=== PATIENT | female | born 1945 | race Caucasian/White ===

== ENCOUNTER 2022-02-12 13:23 | Inpatient (IN) | payer MEDICARE, OTHER ==
[~2022-02-12] VITALS: Ht 152.4 cm; Wt 70.3 kg
[~2022-02-12 13:23] MED LIST: ALPR-392; CITA10TA9; DIVA-73; ESTR0.3T3; IBUP-777; LOSA100T3; SIMV40TA2
[2022-02-12 15:09] LABS: BASOPHILS % 0.4 % (0.0-2.0); CHLORIDE 105 mEq/L (98-107); EOSINOPHILS % 0.6 % (0.0-5.0); HEMATOCRIT. 37.5 % (36.0-48.0); HEMOGLOBIN. 12.2 g/dL (12.0-16.0); LYMPHOCYTES % 23.5 % (20.0-50.0); MEAN CORPUSCULAR HEMOGLOBIN 27.3 pg (28.0-32.0); MEAN CORPUSCULAR VOLUME 84.3 fL (81.0-99.0); MEAN PLATELET VOLUME 9.6 fl (7.4-10.4); MONOCYTES % 8.4 % (2.0-8.0); NEUTROPHILS % 67.1 % (40.0-76.0); PLATELET 214 x1000/uL (130-400); RED BLOOD CELL COUNT 4.45 mill/uL (4.2-5.4); RED CELL DISTRIBUTION WIDTH 16.2 % (11.6-14.6)
[2022-02-12 15:13] LABS: ETHANOL BLOOD < 10 mg/dL
[2022-02-12] MEDS ORDERED: LEVOFLOXACIN 750MG PREMIX 150 ML IV ONE (16:45)
[2022-02-12] MEDS ORDERED: ASPIRIN 81MG TABLET PO ONE (16:45)
[2022-02-12] MEDS ORDERED: ASPIRIN 81MG TABLET PO NR (18:30)
[2022-02-12 20:35] VITALS: BP 152/74
[2022-02-12] MEDS ORDERED: HYDRALAZINE 20MG/ML VIAL IV PRN (22:00)
[2022-02-12] MEDS ORDERED: ZOLPIDEM TARTRATE 5MG TABLET PO PRN (22:00)
[2022-02-12] MEDS ORDERED: DIPHENHYDRAMINE 50MG/ML VIAL IV PRN (22:00)
[2022-02-12] MEDS ORDERED: GUAIFENESIN 200MG/10ML SUGAR FREE UDC PO PRN (22:00)
[2022-02-12] MEDS ORDERED: ENOXAPARIN 40MG/0.4ML SYR SUBCUT SCH (22:00)
[2022-02-12] MEDS ORDERED: ONDANSETRON HCL 4MG/2ML INJ IV PRN (22:00)
[2022-02-12] MEDS ORDERED: CLONIDINE 0.1MG TABLET PO PRN (22:00)
[2022-02-12] MEDS ORDERED: ACETAMINOPHEN 325MG TABLET PO PRN ×2 (22:00)
[2022-02-12] MEDS ORDERED: ASPI-1406 PO (22:10)
[2022-02-12] MEDS ORDERED: ATOR40TA70 PO (22:10)
[2022-02-12] MEDS ORDERED: OXYB5TAB17 PO (22:10)
[2022-02-12] MEDS ORDERED: DIVA-73 PO (22:10)
[2022-02-12] MEDS ORDERED: LOSA50TA41 PO (22:10)
[2022-02-12] MEDS ORDERED: HYDR12.54 PO (22:10)
[2022-02-12] MEDS ORDERED: CITA10TA9 PO (22:10)
[2022-02-12] MEDS: SODIUM CHLORIDE 0.9% INJ 3ML FLUSH IVF SCH (22:56)
[2022-02-12] MEDS: ENOXAPARIN 60MG/0.6ML SYR SUBCUT SCH (22:56)
[2022-02-13] VITALS: BP 158/74
[2022-02-13] MEDS: DILTIAZEM HCL 60MG TABLET PO SCH ×4 (00:37→17:36)
[2022-02-13 04:00] VITALS: BP 119/64
[2022-02-13] MEDS: SODIUM CHLORIDE 0.9% INJ 3ML FLUSH IVF SCH ×3 (05:54→21:12)
[2022-02-13 06:37] LABS: PROTHROMBIN TIME 10.9 sec (9.6-11.0)
[2022-02-13 08:00] VITALS: BP 133/65
[2022-02-13] MEDS: ENOXAPARIN 60MG/0.6ML SYR SUBCUT SCH (09:41)
[2022-02-13] MEDS: ASPIRIN 81MG EC TABLET PO SCH (09:41)
[2022-02-13 12:00] VITALS: BP 132/70
[2022-02-13 16:13] VITALS: BP 127/52
[2022-02-13 17:24] LABS: *AMPHETAMINES SCREEN URINE NEGATIVE (NEGATIVE); *BARBITURATES SCREEN URINE NEGATIVE (NEGATIVE); *BENZODIAZEPINES SCREEN URINE NEGATIVE (NEGATIVE); *COCAINE SCREEN URINE NEGATIVE (NEGATIVE); METHADONE URINE SCREEN NEGATIVE (NEGATIVE); OPIATES URINE SCREEN PRESUMTIVE POSITIVE (NEGATIVE); PHENCYCLIDINE URINE SCREEN NEGATIVE (NEGATIVE)
[2022-02-13 17:25] LABS: CANNABINOID URINE SCREEN NEGATIVE (NEGATIVE)
[2022-02-13 20:00] VITALS: BP 126/56
[2022-02-13] MEDS ORDERED: CITALOPRAM HYDROBROMIDE 10MG TABLET PO SCH (21:00)
[2022-02-13] MEDS ORDERED: ATORVASTATIN CALCIUM 40MG TABLET PO SCH (21:00)
[2022-02-13] MEDS ORDERED: ATORVASTATIN CALCIUM 20MG TABLET PO SCH (21:00)
[2022-02-13] MEDS: DIVALPROEX SODIUM 250MG DR TABLET PO SCH (21:11)
[2022-02-13] MEDS: OXYBUTYNIN CHLORIDE 5MG TABLET PO SCH (21:11)
[2022-02-13] MEDS: ENOXAPARIN 80MG/0.8ML SYR SUBCUT SCH (21:12)
[2022-02-14] VITALS: BP 138/56
[2022-02-14] MEDS: DILTIAZEM HCL 60MG TABLET PO SCH ×3 (00:51→13:53)
[2022-02-14 04:00] VITALS: BP 109/49
[2022-02-14 04:45] LABS: BASOPHILS % 0.5 % (0.0-2.0); EOSINOPHILS % 0.5 % (0.0-5.0); HEMATOCRIT. 38.3 % (36.0-48.0); HEMOGLOBIN. 12.5 g/dL (12.0-16.0); LYMPHOCYTES % 28.8 % (20.0-50.0); MEAN CORPUSCULAR HEMOGLOBIN 27.2 pg (28.0-32.0); MEAN CORPUSCULAR VOLUME 83.2 fL (81.0-99.0); MEAN PLATELET VOLUME 9.6 fl (7.4-10.4); NEUTROPHILS % 63.2 % (40.0-76.0); PLATELET 227 x1000/uL (130-400); RED CELL DISTRIBUTION WIDTH 16.1 % (11.6-14.6)
[2022-02-14 05:02] LABS: CHLORIDE 103 mEq/L (98-107)
[2022-02-14 05:12] LABS: PHOSPHORUS 3.7 mg/dL (2.5-4.9)
[2022-02-14] MEDS: SODIUM CHLORIDE 0.9% INJ 3ML FLUSH IVF SCH ×2 (05:13→13:53)
[2022-02-14 07:50] VITALS: BP 126/49
[2022-02-14] MEDS: ENOXAPARIN 80MG/0.8ML SYR SUBCUT SCH (09:12)
[2022-02-14] MEDS: DIVALPROEX SODIUM 250MG DR TABLET PO SCH (09:13)
[2022-02-14] MEDS: ASPIRIN 81MG EC TABLET PO SCH (09:13)
[2022-02-14] MEDS: OXYBUTYNIN CHLORIDE 5MG TABLET PO SCH (09:14)
[2022-02-14 12:59] VITALS: BP 146/64
[2022-02-14 14:33] VITALS: BP 146/64
[2022-02-14 16:15] VITALS: BP 129/54
== END 2022-02-14 18:05 | disposition home or self-care (01) | DRG 74 ==
LOC: ER 14:09 → 6WST 16:33 → ENRESERV 17:15
PROVIDERS: ADMIT Internal Medicine; ATTEND Internal Medicine
DX: G90.8 Other disorders of autonomic nervous system (principal); I48.0 Paroxysmal atrial fibrillation; I25.10 Atherosclerotic heart disease of native coronary artery without angina pectoris; I10 Essential (primary) hypertension; E11.9 Type 2 diabetes mellitus without complications; M47.812 Spondylosis without myelopathy or radiculopathy, cervical region; F41.1 Generalized anxiety disorder; Z90.710 Acquired absence of both cervix and uterus; Z88.0 Allergy status to penicillin; Z79.899 Other long term (current) drug therapy; Z79.1 Long term (current) use of non-steroidal anti-inflammatories (NSAID); Z95.5 Presence of coronary angioplasty implant and graft
CPT/HCPCS: 36415; 71045; 80048; 80053; 80305; 80320; 83036; 83735; 83880; 84100; 84484; 85025; 93005; 93306; 99285; J1650; J1956; G0480

== ENCOUNTER 2023-09-13 13:42 | Emergency (ER) | payer MEDICARE ==
[~2023-09-13] VITALS: Ht 152.4 cm; Wt 61.2 kg
[~2023-09-13 13:42] MED LIST changes: -ALPR-392; +ASPI-1406 PO; +ATOR40TA70 PO; +CITA10TA88 PO; -CITA10TA9; -DIVA-73; +DIVA-73 PO; -ESTR0.3T3; +HYDR12.54 PO; -IBUP-777; -LOSA100T3; +LOSA50TA41 PO; +OXYB5TAB17 PO; -SIMV40TA2
[2023-09-13 14:22] VITALS: O2SAT 97
[2023-09-13] MEDS ORDERED: ACETAMINOPHEN 325MG TABLET PO ONE (17:45)
[2023-09-13] MEDS ORDERED: KETOROLAC 60MG/2ML VIAL IM ONE (17:45)
[2023-09-13 17:57] VITALS: BP 163/72; PULSE 85; RESP 16; TEMP 98.3
[2023-09-13] MEDS ORDERED: MELO-104 MT (19:06)
== END 2023-09-13 19:34 | disposition home or self-care (01) ==
LOC: ER 13:42
DX: M19.011 Primary osteoarthritis, right shoulder (principal); E11.9 Type 2 diabetes mellitus without complications; I10 Essential (primary) hypertension; Z88.0 Allergy status to penicillin
CPT/HCPCS: 99283; 73030; 96372; J1885